=== PATIENT | female | born 1955 | race Caucasian/White ===

== ENCOUNTER → 2018-07-23 | Outpatient (CLI) | payer BC | LOC: BMCIMAGING 11:54 | PROVIDERS: ATTEND Orthopaedic Surgery Hand Surgery | DX: S82.831D Other fracture of upper and lower end of right fibula, subsequent encounter for closed fracture with routine healing (principal) ==

== ENCOUNTER → 2019-01-15 | Outpatient (CLI) | payer BC | LOC: BMCIMAGING 11:25 | PROVIDERS: ATTEND Family Medicine | DX: R05 Cough (principal) ==